=== PATIENT | male | born 1985 | race Caucasian/White ===

== ENCOUNTER 2022-03-30 19:45 | Emergency (ER) | payer BC, MEDICAID ==
[2022-03-30] MEDS: Bupivacaine 0.25% 10 ML SDV INJECT ONE (20:19)
[2022-03-30] MEDS: Lidocaine 1% 30 ML SDV INFILT ONE (20:19)
[2022-03-30] MEDS: Amoxicillin/Clavulanate K 875-125 MG Tab PO ONE (20:46)
== END 2022-03-30 20:48 | disposition home or self-care (01) ==
LOC: DL.ED 19:45
DX: K04.7 Periapical abscess without sinus (principal); K02.9 Dental caries, unspecified; F17.210 Nicotine dependence, cigarettes, uncomplicated; Z88.8 Allergy status to other drugs, medicaments and biological substances
CPT/HCPCS: 64400; 99282; A9270; J3490